=== PATIENT | female | born 1975 | race Two or more races ===

== ENCOUNTER 2021-08-18 18:02 | Emergency (ER) | payer MEDICAID, OTHER ==
[~2021-08-18] VITALS: Ht 157.5 cm; Wt 77.1 kg
[2021-08-18] MEDS ORDERED: KETOROLAC TROMETH 30 MG/ML 1ML VIAL IV ONE (20:45)
[2021-08-18 21:15] LABS: Basophils # (auto) 0 10 ^3/uL (0-0.2); Basophils % (auto) 0.4 % (0.0-2.0); Eosinophils # (auto) 0.1 10 ^3/uL (0-0.8); Eosinophils % (auto) 0.8 % (0.0-7.0); Hemoglobin 13.1 g/dL (12.2-16.2); Lymphocytes # (auto) 3.7 10 ^3/uL (0.4-5.4); Lymphocytes % (auto) 45.2 % (10.0-50.0); Mean Corpuscular Hemoglobin 28.6 pg (28.0-32.0); Mean Corpuscular Hgb Conc. 34.5 g/dL (32.0-36.0); Monocytes # (auto) 0.4 10 ^3/uL (0-1.3); Neutrophils # (auto) 3.9 10 ^3/uL (1.6-8.6); Neutrophils % (auto) 48.6 % (37.0-80.0); Nucleated Red Blood Cells % 0.1 %; Red Blood Cells 4.58 10^6/uL (4.0-5.20); Red Cell Distribution Width 13.3 % (11.8-14.3); White Blood Cell 8.1 10^3/uL (4.4-10.8)
[2021-08-18 21:24] LABS: BUN/Creatinine Ratio 21.2; Calcium 9.4 mg/dL (8.5-10.1); Potassium 3.8 mmol/L (3.5-5.1)
[2021-08-18 22:02] LABS: Urine Bacteria NONE SEEN /hpf (None Seen); Urine Blood 3+ /uL (Negative); Urine Mucus FEW (None Seen); Urine Specific Gravity 1.024 (1.001-1.035); Urine WBC <1 /hpf (0 - 5)
[2021-08-19 01:47] VITALS: BP 111/77
== END 2021-08-19 01:50 | disposition home or self-care (01) ==
LOC: ER 18:02
DX: S29.8XXA Other specified injuries of thorax, initial encounter (principal); S39.81XA Other specified injuries of abdomen, initial encounter; Y08.89XA Assault by other specified means, initial encounter; Y93.89 Activity, other specified; Y92.89 Other specified places as the place of occurrence of the external cause; Y99.8 Other external cause status
CPT/HCPCS: 36415; 71046; 80048; 81001; 85025; 93005; 96374; 99285; J1885

== ENCOUNTER 2022-03-12 13:51 | Emergency (ER) | payer MEDICAID, OTHER ==
[~2022-03-12] VITALS: Ht 157.5 cm; Wt 76.2 kg
[2022-03-12 14:53] LABS: Basophils # (auto) 0.1 10 ^3/uL (0-0.2); Basophils % (auto) 0.9 % (0.0-2.0); Eosinophils # (auto) 0.1 10 ^3/uL (0-0.8); Eosinophils % (auto) 1.3 % (0.0-7.0); Hematocrit 37.2 % (36.0-46.0); Hemoglobin 12.6 g/dL (12.2-16.2); Lymphocytes # (auto) 3.1 10 ^3/uL (0.4-5.4); Lymphocytes % (auto) 35.8 % (10.0-50.0); Mean Corpuscular Hemoglobin 28.2 pg (28.0-32.0); Mean Corpuscular Hgb Conc. 33.9 g/dL (32.0-36.0); Mean Corpuscular Volume 83.3 fL (80.0-100.0); Monocytes # (auto) 0.4 10 ^3/uL (0-1.3); Monocytes % (auto) 4.9 % (0.0-12.0); Neutrophils # (auto) 4.9 10 ^3/uL (1.6-8.6); Neutrophils % (auto) 57.1 % (37.0-80.0); Nucleated Red Blood Cells % 0.3 %; Red Blood Cells 4.47 10^6/uL (4.0-5.20); Red Cell Distribution Width 13.3 % (11.8-14.3); White Blood Cell 8.6 10^3/uL (4.4-10.8)
[2022-03-12 14:56] LABS: Urine Bacteria NONE SEEN /hpf (None Seen); Urine Blood 1+ /uL (Negative); Urine Specific Gravity 1.012 (1.001-1.035); Urine WBC <1 /hpf (0 - 5)
[2022-03-12] MEDS ORDERED: diazePAM 5 MG TAB PO ONE (15:00)
[2022-03-12 15:15] LABS: Albumin 3.5 g/dL (3.4-5.0); Calcium 8.9 mg/dL (8.5-10.1); Potassium 3.6 mmol/L (3.5-5.1)
[2022-03-12 15:20] LABS: BUN/Creatinine Ratio 16.2; Bilirubin, Total 0.3 mg/dL (0.2-1.0); Total Protein 6.8 g/dL (6.4-8.2)
[2022-03-12 16:00] VITALS: BP 103/69
[2022-03-12] MEDS ORDERED: CEPH-510 PO ×2 (16:45→17:10)
[2022-03-12] MEDS ORDERED: DIAZ5TAB PO (16:47)
== END 2022-03-12 17:56 | disposition home or self-care (01) ==
LOC: ER 13:51 → EEVIPCON 13:51 → ER 17:56
DX: R42 Dizziness and giddiness (principal); F41.9 Anxiety disorder, unspecified; R55 Syncope and collapse; Z88.0 Allergy status to penicillin
CPT/HCPCS: 36415; 70450; 80053; 81001; 84484; 85025; 93005

== ENCOUNTER 2023-02-28 03:33 | Emergency (ER) | payer MEDICAID ==
[~2023-02-28] VITALS: Ht 157.5 cm; Wt 77.2 kg
[~2023-02-28 03:33] MED LIST: CEPH-510 PO
[2023-02-28 04:33] VITALS: PULSE 82; RESP 18; O2SAT 97
[2023-02-28 04:44] LABS: Basophils # (auto) 0 10 ^3/uL (0-0.2); Basophils % (auto) 0.3 % (0.0-2.0); Eosinophils # (auto) 0.1 10 ^3/uL (0-0.8); Eosinophils % (auto) 0.9 % (0.0-7.0); Hematocrit 37.5 % (36.0-46.0); Hemoglobin 12.8 g/dL (12.2-16.2); Lymphocytes # (auto) 3.1 10 ^3/uL (0.4-5.4); Lymphocytes % (auto) 36.9 % (10.0-50.0); Mean Corpuscular Hemoglobin 28.2 pg (28.0-32.0); Mean Corpuscular Volume 82.9 fL (80.0-100.0); Monocytes # (auto) 0.5 10 ^3/uL (0-1.3); Monocytes % (auto) 5.9 % (0.0-12.0); Neutrophils # (auto) 4.7 10 ^3/uL (1.6-8.6); Nucleated Red Blood Cells % 0.1 %; Red Blood Cells 4.53 10^6/uL (4.0-5.20); Red Cell Distribution Width 13.8 % (11.8-14.3); White Blood Cell 8.4 10^3/uL (4.4-10.8)
[2023-02-28 04:51] LABS: Alanine Aminotransferase 18 U/L (7-40); Alkaline Phosphatase 66 U/L (46-116); Anion Gap 6 (5-15); Aspartate Aminotransferase 11 U/L (13-40); BUN/Creatinine Ratio 18.8 (10.0-20.0); Bilirubin, Total 0.2 mg/dL (0.2-1.0); Blood Urea Nitrogen 12 mg/dL (9-23); Calcium 9.2 mg/dL (8.7-10.4); Carbon Dioxide 25 mmol/L (20-30); Chloride 106 mmol/L (98-107); Glucose 105 mg/dL (74-106); Potassium 4.2 mmol/L (3.5-5.1); Sodium 137 mmol/L (136-145); Total Protein 6.7 g/dL (5.7-8.2)
[2023-02-28 05:05] LABS: Urine Bacteria NONE SEEN /hpf (None Seen); Urine Blood 2+ /uL (Negative); Urine Clarity Clear (Clear); Urine Color Colorless (Yellow); Urine Protein, UAD Negative (Negative); Urine Specific Gravity 1.021 (1.001-1.035); Urine Urobilinogen Normal (Negative); Urine WBC 1 /hpf (0 - 5)
[2023-02-28] MEDS ORDERED: ACETAMINOPHEN 325 MG TAB PO ONE ×2 (05:45→10:00)
[2023-02-28 07:46] VITALS: PULSE 73; RESP 14; TEMP 97.8; O2SAT 99
[2023-02-28] MEDS ORDERED: SODIUM CHLORIDE 0.9% 1,000 ML IV ONE (10:00)
[2023-02-28 11:28] VITALS: BP 106/67; PULSE 69; RESP 16; O2SAT 97
== END 2023-02-28 12:08 | disposition admitted as inpatient to this hospital (09) ==
LOC: ER 03:33
DX: N93.9 Abnormal uterine and vaginal bleeding, unspecified (principal); R10.2 Pelvic and perineal pain; Z88.0 Allergy status to penicillin; Z90.49 Acquired absence of other specified parts of digestive tract
CPT/HCPCS: 36415; 76830; 76856; 80053; 81001; 84702; 85025; 96360; 99285; J7030